=== PATIENT | female | born 1990 | race Caucasian/White ===

== ENCOUNTER 2018-01-17 09:58 | Emergency (ER) | payer SELFPAY ==
[~2018-01-17] VITALS: Ht 160 cm; Wt 75.1 kg
[2018-01-17 10:04] VITALS: BP 126/81; PULSE 97; RESP 16; TEMP 99.1; O2SAT 97
[2018-01-17 10:55] VITALS: O2SAT 97
--- NOTE | 2018-01-17 11:05 | PD ---
HPI Chief Complaint: GI Complaint Time Seen by Provider: 11:05 Travel History International Travel<30 days: No Contact w/Intl Traveler<30days: No Traveled to known affect area: No History of Present Illness HPI 27-year-old female came to the emergency room with history of vomiting and diarrhea that started last night. Patient says that she ate at [employer] steak and eggs last night and her mother had the same food. They both are sick. Hers started earlier last night and her mother's started this morning. They both in the emergency room. Patient says that her last vomit was about 2 hours ago when she checked in. She has not been able to keep any water or fluids down. Vital signs are stable otherwise. She is otherwise a healthy person. Blood work was initiated before I went to see the patient. She is complaining of generalized abdominal pain mostly as from multiple vomiting and just before the diarrhea. Vomit is nonbilious in color. Patient thinks that she may have had food poisoning. PFSH Past Medical History Narrative Medical List of her past medical, surgical, social and family history reviewed from the nursing note. Medical History: Denies Significant Hx Influenza Vaccination: No ?: Not LMP: on control IUD Past Surgical History Section: Yes Cholecystectomy: Yes Social History Alcohol Use: No Tobacco Use: Yes (1/2PPD) Substance Use: No Allergies-Medications (Allergen,Severity, Reaction): Coded Allergies: Penicillins (Verified Allergy, Intermediate, hives, 01/17/18) Comments List of her allergies reviewed from the nursing note. Reported Meds & Prescriptions Reported Meds & Active Scripts Active Zofran Odt (Ondansetron Odt) 4 Mg Tab 4 Mg SL Q6HR PRN Bactrim DS (Sulfamethoxazole-Trimethoprim) 800-160 Mg Tab 1 Tab PO BID Narrative Medication List of her home medications reviewed from the nursing note. Review of Systems Except as stated in HPI: all other systems reviewed are Neg Gastrointestinal: Positive: Nausea, Vomiting, Diarrhea, Abdominal Pain Physical Exam Narrative GENERAL: Awake, alert, mild distress SKIN: Focused skin assessment warm/dry. HEAD: Atraumatic. Normocephalic. EYES: Pupils equal and round. No scleral icterus. No injection or drainage. ENT: No nasal bleeding or discharge. Dry mucous member. NECK: Trachea midline. No JVD. CARDIOVASCULAR: Regular rate and rhythm. No murmur appreciated. RESPIRATORY: No accessory muscle use. Clear to auscultation. Breath sounds equal bilaterally. GASTROINTESTINAL: Abdomen soft, non-tender, nondistended. Hepatic and splenic margins not palpable. MUSCULOSKELETAL: No obvious deformities. No clubbing. No cyanosis. No edema. NEUROLOGICAL: Awake and alert. No obvious cranial nerve deficits. Motor grossly within normal limits. Normal speech. PSYCHIATRIC: Appropriate mood and affect; insight and judgment normal. Data Data Last Documented VS Vital Signs Date Time Temp Pulse Resp B/P (MAP) Pulse Ox O2 Delivery O2 Flow Rate FiO2 01/17/18 12:25 77 18 120/78 (92) 99 01/17/18 10:55 Room Air 01/17/18 10:04 99.1 Orders Orders Complete Blood Count With Diff (01/17/18 10:47) Comprehensive Metabolic Panel (01/17/18 10:47) Urinalysis - C+S If Indicated (01/17/18 10:47) Ed Urine Pregnancytest Poc (01/17/18 10:47) Iv Access Insert/Monitor (01/17/18 10:47) Oxygen Administration (01/17/18 10:47) Oximetry (01/17/18 10:47) Lipase (01/17/18 10:47) Sodium Chlor 0.9% 1000 Ml Inj (Ns 1000 M (01/17/18 11:30) Ondansetron Inj (Zofran Inj) (01/17/18 11:30) Urine Culture (01/17/18 11:14) Potassium Chloride Eff (K-Lyte Cl Eff) (01/17/18 11:45) Nitrofurantoin Monohyd Macrocr (Macrobid (01/17/18 11:45) Ed Discharge Order (01/17/18 12:13) Labs Laboratory Tests Test 01/17/18 11:14 White Blood Count 23.7 TH/MM3 Red Blood Count 5.23 MIL/MM3 Hemoglobin 16.9 GM/DL Hematocrit 50.3 % Mean Corpuscular Volume 96.2 FL Mean Corpuscular Hemoglobin 32.3 PG Mean Corpuscular Hemoglobin Concent 33.6 % Red Cell Distribution Width 12.4 % Platelet Count 171 TH/MM3 Mean Platelet Volume 10.4 FL Neutrophils (%) (Auto) 86.5 % Lymphocytes (%) (Auto) 3.8 % Monocytes (%) (Auto) 5.2 % Eosinophils (%) (Auto) 0.6 % Basophils (%) (Auto) 3.9 % Neutrophils # (Auto) 20.6 TH/MM3 Lymphocytes # (Auto) 0.9 TH/MM3 Monocytes # (Auto) 1.2 TH/MM3 Eosinophils # (Auto) 0.1 TH/MM3 Basophils # (Auto) 0.9 TH/MM3 CBC Comment DIFF FINAL Differential Comment Urine Collection Type CLEAN CATCH Urine Color YELLOW Urine Turbidity CLEAR Urine pH 6.5 Urine Specific [place] 1.015 Urine Protein TRACE mg/dL Urine Glucose (UA) NEG mg/dL Urine Ketones NEG mg/dL Urine Occult Blood MOD Urine Nitrite NEG Urine Bilirubin NEG Urine Urobilinogen 0.2 MG/DL Urine Leukocyte Esterase SMALL Urine RBC 20-24 /hpf Urine WBC 15-19 /hpf Urine Squamous Epithelial Cells > 8 /hpf Urine Bacteria OCC /hpf Microscopic Urinalysis Comment CULTURE INDICATED Urine Collection Time 11:14 Blood Urea Nitrogen 13 MG/DL Creatinine 0.88 MG/DL Random Glucose 94 MG/DL Total Protein 8.3 GM/DL Albumin 4.0 GM/DL Calcium Level 8.8 MG/DL Alkaline Phosphatase 83 U/L Aspartate Amino Transf (AST/SGOT) 17 U/L Alanine Aminotransferase (ALT/SGPT) 24 U/L Total Bilirubin 1.0 MG/DL Sodium Level 137 MEQ/L Potassium Level 3.3 MEQ/L Chloride Level 102 MEQ/L Carbon Dioxide Level 28.2 MEQ/L Anion Gap 7 MEQ/L Estimat Glomerular Filtration Rate 76 ML/MIN Lipase 449 U/L MDM Medical Decision Making Medical Screen Exam Complete: Yes Emergency Medical Condition: Yes Medical Record Reviewed: Yes Differential Diagnosis Acute gastroenteritis, food poisoning, electrolyte abnormality Narrative Course 11:46 AM patient was given IV fluid bolus and Zofran. Blood test results are back and she has significant leukocytosis. Although given the fact that she is afebrile and vital signs are within normal limits and clinically she does not appear toxic I think the leukocytosis is in response to the stress induced by multiple episodes of vomiting and diarrhea. I am giving her potassium replacement since her potassium is slightly low. She will be given p.o. challenge and if she tolerates she will be discharged home. 12:09 PM patient has not had any more episodes of vomiting or diarrhea. I have discussed with her about her test results. She will be discharged home on prescriptions. Procedures EKG Prior to Arrival: No Diagnosis Primary Impression: Acute gastroenteritis Additional Impressions: Leukocytosis Qualified Codes: D72.829 - Elevated white blood cell count, unspecified UTI (urinary tract infection) Qualified Codes: N39.0 - Urinary tract infection, site not specified Referrals: Primary Care Physician 3 days Additional Instructions: Return to the ER if condition worsens or any other new concerns. Take clear liquid diet for next 24 hours. If you tolerate well proceed to regular diet. Take the medication as per the prescription direction. Follow-up with your primary care. Med/Other Pt SpecificInfo: Prescription(s) given Scripts Ondansetron Odt (Zofran Odt) 4 Mg Tab 4 MG SL Q6HR Y for Nausea/Vomiting, #10 TAB 0 Refills Prov: Danielle Benson MD 01/17/18 Sulfamethoxazole-Trimethoprim (Bactrim DS) 800-160 Mg Tab 1 TAB PO BID for Infection, #14 TAB 0 Refills Prov: Danielle Benson MD 01/17/18 Disposition: DISCHARGE HOME Condition: Stable Danielle Benson MD Jan 17, 2018 11:05
[2018-01-17 11:18] LABS: BILIRUBIN, URINE NEG (NEG); BLOOD, URINE MOD (NEG); GLUCOSE,URINE NEG (NEG); KETONE, URINE NEG (NEG); NITRITE,URINE NEG (NEG); PH, URINE 6.5 (5.0-8.5); URINE COLOR YELLOW (YELLW/STRAW); URINE LEUKOCYTE ESTERASE SMALL (NEG)
[2018-01-17 11:19] LABS: AUTOMATED NEUTROPHIL # 20.6 TH/MM3 (1.8-7.7); BASOPHIL # 0.9 TH/MM3 (0-0.2); BASOPHIL % 3.9 % (0.0-2.0); EOSINOPHIL # 0.1 TH/MM3 (0-0.4); EOSINOPHIL % 0.6 % (0.0-4.0); HEMATOCRIT 50.3 % (35.0-46.0); HEMOGLOBIN 16.9 GM/DL (11.6-15.3); LYMPH % 3.8 % (9.0-44.0); LYMPHOCYTE # 0.9 TH/MM3 (1.0-4.8); MEAN CELL VOLUME 96.2 FL (80.0-100.0); MEAN CORPUSCULAR HEMOGLOBIN 32.3 PG (27.0-34.0); MEAN CORPUSCULAR HGB CONC 33.6 % (32.0-36.0); MEAN PLATELET VOLUME 10.4 FL (7.0-11.0); MONO % 5.2 % (0.0-8.0); MONOCYTE # 1.2 TH/MM3 (0-0.9); NEUT % 86.5 % (16.0-70.0); PLATELET COUNT 171 TH/MM3 (150-450); RED BLOOD COUNT 5.23 MIL/MM3 (4.00-5.30); RED CELL DISTRIBUTION WIDTH 12.4 % (11.6-17.2); WHITE BLOOD COUNT 23.7 TH/MM3 (4.0-11.0)
[2018-01-17 11:27] LABS: CHLORIDE 102 MEQ/L (98-107); SODIUM (NA) 137 MEQ/L (136-145)
[2018-01-17 11:29] LABS: BACTERIA, URINE OCC /hpf; SQUAMOUS EPITHELIAL CELL URINE > 8 /hpf (0-5); WBC, URINE 15-19 /hpf (0-5)
[2018-01-17 11:30] LABS: CALCIUM 8.8 MG/DL (8.5-10.1)
[2018-01-17] MEDS ORDERED: ONDANSETRON HCL 4 MG/2 ML VIAL IV PUSH ONE (11:30)
[2018-01-17] MEDS ORDERED: SODIUM CHLOR 0.9% 1000 ML INJ 1,000 ML IV ONE (11:30)
[2018-01-17 11:31] LABS: BICARBONATE 28.2 MEQ/L (21.0-32.0); BLOOD UREA NITROGEN 13 MG/DL (7-18); GLUCOSE,RANDOM 94 MG/DL (74-106)
[2018-01-17 11:34] LABS: ALT (GPT) 24 U/L (10-53); AST (GOT) 17 U/L (15-37); CREATININE 0.88 MG/DL (0.50-1.00); GLOMERULAR FILTRATION RATE 76 ML/MIN (>89)
[2018-01-17 11:35] LABS: TOTAL PROTEIN 8.3 GM/DL (6.4-8.2)
[2018-01-17 11:37] LABS: ALKALINE PHOSPHATASE 83 U/L (45-117)
[2018-01-17] MEDS ORDERED: POTASSIUM CHLORIDE 25 MEQ EFFERVESCENT TAB PO ONE (11:45)
[2018-01-17] MEDS ORDERED: NITROFURANTOIN MONOHYD MACROCR 100 MG CAP PO ONE (11:45)
[2018-01-17] MEDS ORDERED: ZOFR4TAB3 SL (12:11)
[2018-01-17] MEDS ORDERED: BACT800T5 PO (12:11)
[2018-01-17 12:25] VITALS: BP 120/78
== END 2018-01-17 12:30 | disposition home or self-care (01) ==
LOC: PHED 09:58
DX: K52.9 Noninfective gastroenteritis and colitis, unspecified (principal); N39.0 Urinary tract infection, site not specified; D72.829 Elevated white blood cell count, unspecified; F17.200 Nicotine dependence, unspecified, uncomplicated
CPT/HCPCS: 80053; 81001; 83690; 84703; 85025; 87086; 96361; 96374; 99284; J2405; J7030